=== PATIENT | female | born 1980 | race Caucasian/White ===

== ENCOUNTER 2022-08-14 09:26 | Emergency (ER) | payer OTHER, SELFPAY ==
[2022-08-14 09:33] VITALS: BP 101/67; PULSE 79; RESP 16; TEMP 36.6; O2SAT 100
--- NOTE | 2022-08-14 09:55 | ED.EXTPRO ---
HPI - Extremity Problem General Chief complaint: Extremity Problem,Nontraumatic Stated complaint: KNOT TO R LOWER LEG/KNEE PAIN Time Seen by Provider: 08/14/22 09:55 Source: patient, RN notes reviewed and old records reviewed Mode of arrival: ambulatory Limitations: no limitations History of Present Illness HPI Narrative: 42 year old female presents to [facility] care with complaints of right lower leg knot and bilateral knee pain. for past 2 day duration. 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 Patient has 2cm X 5cm palpable knot to anterior right distal tibia /fibula area with no known injury, no wound bruising or discoloration noted. Patient has other bruising noted to right lower leg. Patient states that area on leg is somewhat tender to palpation. Patient denies any shortness of breath or any chest pain. Patient reports that she is breast feeding.Patient declined offer of x-ray of right lower leg. Patient has not taken any OTC medications for her discomfort. MD Complaint: other (bilateral knee discomfort and knot to anterior lower leg) Onset (ago): day(s) (2) Severity scale (1-10): 2 Quality: other (soreness) Related Data Home Medications Medication Instructions Recorded Confirmed cetirizine 10 mg tablet 10 mg PO DAILY 08/14/22 08/14/22 valacyclovir 1 gram tablet 1,000 mg PO DAILY 08/14/22 08/14/22 Allergies Allergy/AdvReac Type Severity Reaction Status Date / Time No Known Allergies Allergy Verified 08/14/22 09:44 Review of Systems Review of Systems: CONSTITUTIONAL: Denies fever, chills, or sweats. EYES: Denies visual changes, redness, or discharge. ENT: Denies rhinorrhea, congestion, sore throat, or otalgia. CARDIOVASCULAR: Denies chest pain, palpitations, or edema. RESPIRATORY: Denies cough or dyspnea. GASTROINTESTINAL: Denies abdominal pain, nausea, vomiting, or diarrhea. GENITOURINARY: Denies dysuria or hematuria. SKIN: Denies rash or itching.Palpable nodule right lower anterior leg MUSCULOSKELETAL: Denies back pain,knee joint pain, or myalgia. NEUROLOGIC: Denies headache, numbness, or weakness. PSYCHIATRIC: Denies anxiety or depression. All systems reviewed & are unremarkable except as noted in HPI and below PMFSH Surgical History Surgical History (Updated 08/15/22 @ 07:13 by Maxine Lutz NP) Hx of appendectomy Previous section Social History Social History (Updated 08/15/22 @ 07:14 by Maxine Lutz NP) Smoking status: Never smoker Alcohol intake: unknown Substance use type: does not use Living arrangements: with family Gender identity (if verbalized by the patient): Female Comments At time of signature, agree with nursing past medical, surgical, social and family history. There is no relevant family history pertinent to the presenting complaint Exam Narrative: GENERAL: Well-appearing, well-nourished, and in no acute distress. HEAD: Normocephalic, atraumatic. EYES: PERRLA and EOMI. ENT: Nares clear, no rhinorrhea or epistaxis. Mucous membranes moist. NECK: Supple.no lymphadenopathy CHEST: Clear to auscultation.No respiratory distress.Sao2 100% on room air HEART: Regular rate and rhythm. No murmur heard. Normal peripheral pulses. ABDOMEN: Soft, nontender, nondistended, normal active bowel sounds. EXTREMITIES: Normal range of motion. No edema.soft palpable knot like area 2cm X 5cm to anterior right tib/fib area mild tenderness on palpation. no wound, ecchymosis or redness noted has various other bruised areas on right lower leg, denies any calf pain or any swelling in calf region. Voices also aching nd poping of bilateral knees with full ROM noted no crepitus noted or swelling SKIN: Warm, dry, no rash. soft palpable [id number] knot like area right lower leg NEURO: No focal deficits. Alert and oriented x
== END 2022-08-14 10:15 | disposition home or self-care (01) ==
PROVIDERS: Emergency Provider Registered Nurse
DX: R22.41 Localized swelling, mass and lump, right lower limb (principal); M25.562 Pain in left knee; M25.561 Pain in right knee
CPT/HCPCS: 99213; G0463